=== PATIENT | female | born 1990 ===

== ENCOUNTER 2017-02-23 05:51 | Inpatient (IN) | payer BC, OTHER ==
[~2017-02-23] VITALS: Ht 170.2 cm; Wt 152.0 kg
[2017-02-23] MEDS ORDERED: VITAFOL-OB+DHA1 EACH PO (06:29)
[2017-02-23] MEDS ORDERED: VITAMIN D400 UNIT (06:30)
[2017-02-23] MEDS ORDERED: FE C PLUS TABL1 EACH (06:30)
== END 2017-02-25 08:50 | disposition home or self-care (01) | DRG 774 ==
LOC: FBC 05:51
PROVIDERS: ADMIT Obstetrics & Gynecology
PROC: 10E0XZZ Delivery of Products of Conception, External Approach (ICD-10-PCS; principal; 2017-02-23)
PROC: 0KQM0ZZ Repair Perineum Muscle, Open Approach (ICD-10-PCS; 2017-02-23)
PROC: 10907ZC Drainage of Amniotic Fluid, Therapeutic from Products of Conception, Via Natural or Artificial Opening (ICD-10-PCS; 2017-02-23)
DX: O24.12 Pre-existing type 2 diabetes mellitus, in childbirth (principal); E11.9 Type 2 diabetes mellitus without complications; O70.1 Second degree perineal laceration during delivery; O69.81X0 Labor and delivery complicated by cord around neck, without compression, not applicable or unspecified; O99.214 Obesity complicating childbirth; O99.334 Smoking (tobacco) complicating childbirth; E66.01 Morbid (severe) obesity due to excess calories; Z3A.40 40 weeks gestation of pregnancy; Z37.0 Single live birth; F17.210 Nicotine dependence, cigarettes, uncomplicated
CPT/HCPCS: 36415; 82803; 83036; 85027; 99406; J1644; J2550; J2590; J3010; J7120